=== PATIENT | female | born 1980 | race Caucasian/White ===

== ENCOUNTER 2017-08-21 11:21 | Emergency (ER) | payer OTHER ==
[~2017-08-21] VITALS: Ht 165.1 cm; Wt 68.6 kg
[2017-08-21 11:25] VITALS: TEMP 36.5; Ht 165.1 cm; Wt 68.6 kg
[2017-08-21] MEDS ORDERED: METHYLPREDNISOLONE 125 MG VIAL IV STA (11:42)
[2017-08-21] MEDS ORDERED: DiphenhydrAMINE HCL 50 MG/ML VIAL IV STA (11:42)
[2017-08-21] MEDS ORDERED: FAMOTIDINE 20MG/102 ML D5W IV STA (11:42)
[2017-08-21] MEDS ORDERED: SODIUM CHLORIDE 0.9% 1000ML 1,000 ML IV STA (11:42)
[2017-08-21] MEDS ORDERED: RANI150T3 PO (12:14)
[2017-08-21] MEDS ORDERED: DIPH25CA65 PO (12:14)
[2017-08-21] MEDS ORDERED: PRED50TA PO (13:15)
[2017-08-21 13:23] VITALS: BP 99/51; PULSE 81; O2SAT 97
--- NOTE | 2017-08-21 14:50 | EMERGENCY ROOM VISIT NOTE ---
History Report prepared by Rayna: Deepa Leon Under the Supervision of: Dr. Kraig Quiroz D.O. First contact with patient: 11:29 Chief Complaint: ALLERGIC REACTION Stated Complaint: HIVES - TIGHTNESS IN THROAT History of Present Illness The patient is a 37 year old female who presents to the Emergency Room with complaints of persistent hives over her entire body that began Wednesday around 1530. She currently rates her discomfort as an 8/10 in severity. The patient states that Wednesday she had eaten some ice-cream, but states that she had the ice -cream in the past and never had a reaction to it in the past. She states that hives started in her abdomen and the inside of her legs. The patient states that she went to Urgent Care on Wednesday and states that she was given a dexamethasone shot and instructed to take Benadryl. She states that she last Wednesday she had a sore throat and had taken Benadryl for her symptoms, noting that the soreness has resolved. The patient states that since the hives began she has had throat tightness. She states that she has been using 25 mg of Benadryl for her symptoms. The patient states that her whole body is itchy. She denies any new soaps, detergents, pets, new perfumes, travel, or drinking or eating anything out of the ordinary. Source of History: patient Onset: Wednesday around 0 Position: other (entire body) Symptom Intensity: 8/10 Quality: other (hives, itchy) Timing: other (persistent) Note: Associated Symptoms: throat tightness Review of Systems See HPI for pertinent positives & negatives. A total of 10 systems reviewed and were otherwise negative. Past Medical & Surgical Medical Problems: (1) section (2) History of - tubal ligation (3) Migraine (4) [place] Teeth Removal Family History Diabetes mellitus FH: cancer Hypertension Kidney disease Kidney stones Social History Smoking Status: Current Every Day Smoker Alcohol Use: none Drug Use: none Marital Status: Housing Status: lives with family Occupation Status: employed Current/Historical Medications Scheduled Prednisone (Prednisone), 50 MG PO DAILY Ranitidine Hcl (Zantac), 150 MG PO DAILY Scheduled PRN Diphenhydramine Hcl (Benadryl Allergy), 1 CAP PO UD PRN for AL. Allergies Coded Allergies: No Known Allergies (Unverified , 08/21/17) Physical Exam Vital Signs Date Time Temp Pulse Resp B/P (MAP) Pulse Ox O2 Delivery O2 Flow Rate FiO2 08/21/17 13:23 81 18 99/51 97 08/21/17 12:35 74 18 100 Room Air 08/21/17 11:25 36.5 100 20 99/66 97 Room Air Physical Exam GENERAL: alert, ambulating throughout room, well appearing, well nourished, no distress, non-toxic EYE EXAM: normal conjunctiva. OROPHARYNX: no exudate, no erythema, lips, buccal mucosa, and tongue normal and mucous membranes are moist NECK: supple, no nuchal rigidity, no adenopathy, non-tender LUNGS: Clear to auscultation. Normal chest wall mechanics HEART: no murmurs, S1 normal and S2 normal ABDOMEN: abdomen soft, non-tender, normo-active bowel sounds, no masses, no rebound or guarding. BACK: Back is symmetrical on inspection and there is no deformity, no midline tenderness, no CVA tenderness. SKIN: Diffuse, erythematous, raised, macular lesions which [place] on palpation, no petechia. no oral involvement. Negative Nikolsky sign. UPPER EXTREMITIES: upper extremities are grossly normal. LOWER EXTREMITIES: No pitting edema. NEURO EXAM: Normal sensorium, cranial nerves II-XII grossly intact, normal speech, no gross weakness of arms, no gross weakness of legs. Medical Decision & Procedures Medications Administered Medications (Trade) Dose Ordered Sig/Maria Teresa Route Start Time Stop Time Status Last Admin Dose Admin Sodium Chloride 1,000 ml @ 999 mls/hr Q1H1M STAT IV 08/21/17 11:42 08/21/17 12:42 DC 08/21/17 12:05 999 MLS/HR Diphenhydramine HCl (Benadryl Inj) 50 mg NOW STAT IV 08/21/17 11:42 08/21/17 11:48 DC 08/21/17 12:06 50 MG Methylprednisolone Sodium Succinate (Solu-Medrol IV) 125 mg NOW STAT IV 08/21/17 11:42 08/21/17 11:48 DC 08/21/17 12:06 125 MG Famotidine (Pepcid 20mg/100 ml) 40 mg ONE STAT IV 08/21/17 11:42 08/21/17 11:48 DC 08/21/17 12:06 40 MG ED Course ED COURSE: Vital signs were reviewed and showed hypotensive The patients medical record was reviewed The above diagnostic studies were performed and reviewed. ED treatments and interventions as stated above. 1130: The patient was evaluated in room B3B. A complete history and physical examination was performed. 1142: Ordered Famotidine 40 mg IV, Solu-Medrol IV 125 mg IV, Benadryl Inj 50 mg IV, Sodium Chloride 1000 ml @ 999 mls/hr IV. 1307: Upon reevaluation, the patient is feeling better, but still slightly itchy.I discussed my findings with the patient and she understands and agrees with the treatment plan. Based on the patients age, coexisting illnesses, exam and lab findings the decision to treat as an outpatient was made. The patient remained stable while under my care. The patient appeared well at the time of discharge. Medical Decision Differential diagnosis: Etiologies such as allergic reaction, anaphylaxis, urticaria, Mcdonald-Nick syndrome, toxic epidermal necrolysis, erythema multiforme, cellulitis, as well as others were entertained. Patient is a 37-year-old female that presents to ER with hives. She notes that it started Wednesday. Cervical degenerative and Lasix grossly worsened she also complains of a mild sore throat which started last week which only lasts for less than 24 hours. It was associated with a cough which also resolved quickly. No oral lesions. She has been taking Benadryl without relief. IV was established she was given IV Benadryl 50 mg she is only taking 25, steroids , famotidine and she had improvement in her rash and itching GERD that she did not completely resolve. She was updated in regards to her findings and was discharged to follow-up with PCP. As stated above there is no new detergents, soaps, sprays, animals, travel, clothing or food/drink. No new medications other with the exception of Benadryl which she took several days ago. Discussed with Pt concerning signs and symptoms to watch out for. Pt was instructed to follow up with their PCP and discussed with the patient their option to return to the ED at anytime for persistent or worsening symptoms. The appropriate anticipatory guidance and out-patient management, including indications for return to the emergency department, were explained at length to the patient and understood. Medication Reconcilliation Current Medication List: was personally reviewed by me Blood Pressure Screening Patient's blood pressure: Low blood pressure Blood pressure disposition: Did not require urgent referral Impression Primary Impression: Allergic reaction Scribe Attestation The scribe's documentation has been prepared under my direction and personally reviewed by me in its entirety. I confirm that the note above accurately reflects all work, treatment, procedures, and medical decision making performed by me. Departure Information Dispostion Home / Self-Care Prescriptions Prednisone (PREDNISONE) 50 Mg Tab 50 MG PO DAILY for 5 Days, #5 TAB Prov: Kraig Quiroz, DO 08/21/17 Referrals Calvin Turner M.D. Forms HOME CARE DOCUMENTATION FORM, IMPORTANT VISIT INFORMATION Patient Instructions ED Allergic Reaction General Other, My [facility] Problem Qualifiers Primary Impression: Allergic reaction Encounter type: initial encounter Qualified Codes: T78.40XA - Allergy, unspecified, initial encounter
== END 2017-08-21 13:24 | disposition home or self-care (01) ==
LOC: C.EDB 11:21
DX: T78.40XA Allergy, unspecified, initial encounter (principal); X58.XXXA Exposure to other specified factors, initial encounter; F17.200 Nicotine dependence, unspecified, uncomplicated; Z98.51 Tubal ligation status; Z98.891 History of uterine scar from previous surgery; Z98.818 Other dental procedure status; Z83.3 Family history of diabetes mellitus; Z82.49 Family history of ischemic heart disease and other diseases of the circulatory system; Z84.1 Family history of disorders of kidney and ureter

== ENCOUNTER 2017-08-23 09:40 | Emergency (ER) | payer OTHER ==
[~2017-08-23] VITALS: Ht 165.1 cm; Wt 67.1 kg
[~2017-08-23 09:40] MED LIST: DIPH25CA65 PO; PRED50TA PO; RANI150T3 PO
[2017-08-23 09:48] VITALS: TEMP 36.8; Ht 165.1 cm; Wt 67.1 kg
[2017-08-23] MEDS ORDERED: SODIUM CHLORIDE 0.9% 1000ML 1,000 ML IV STA (10:24)
[2017-08-23] MEDS ORDERED: ONDANSETRON INJ 2 MG/ML 2 ML VIAL IV STA (10:24)
[2017-08-23] MEDS ORDERED: FAMOTIDINE 20MG/102 ML D5W IV STA (10:24)
[2017-08-23] MEDS ORDERED: DiphenhydrAMINE HCL 50 MG/ML VIAL IV STA (10:30)
[2017-08-23 11:25] LABS: PREG INTERNAL NEGATIVE QC NEG CLEAR BACKGROUND; PREG INTERNAL POSITIVE QC POS CONTROL LINE
[2017-08-23 11:26] LABS: BUN/CREATININE RATIO 11.8 (10-20); CALCIUM 8.9 mg/dl (8.5-10.1); CREATININE 0.76 mg/dl (0.60-1.20); MAGNESIUM 2.3 mg/dl (1.8-2.4); PHOSPHORUS 2.9 mg/dl (2.5-4.9); POTASSIUM 3.3 mmol/L (3.5-5.1)
[2017-08-23 11:59] VITALS: PULSE 67; O2SAT 98
[2017-08-23] MEDS ORDERED: POTASSIUM CHLORIDE 10 MEQ TABCR PO STA (12:12)
[2017-08-23] MEDS ORDERED: ONDA4TAB10 SL ×2 (12:43→13:24)
--- NOTE | 2017-08-23 12:45 | EMERGENCY ROOM VISIT NOTE ---
History Report prepared by Rayna: Ny Montelongo Under the Supervision of: Dr. Hung Iqbal M.D. First contact with patient: 10:16 Chief Complaint: ILLNESS Stated Complaint: DIZZY,HIVES,NUMBNESS,NAUSEOUS History of Present Illness The patient is a 37 year old female who presents to the Emergency Room with complaints of persistent nausea starting yesterday. The patient was in the ED 2 days ago for an allergic reaction. She had developed hives. She is still not sure what caused the reaction. She was discharged on prednisone. She had her first dose of prednisone yesterday and had 1 today. The hives have improved and she no longer has itching. Yesterday, she started feeling nauseous. This morning when she woke up, she felt very nauseous and was dry heaving. Her heart feels fluttery and she has numbness in her face and tingling in her feet. She feels restless and cold. She denies any abdominal pain, wheezing, fever, chest pain, SOB, cough, congestion, or diarrhea. She has not had a bowel movement for 1 week. She notes that she has not eaten well for the past week. She denies any chance of . She is not on any medications. She denies any new detergents or soap. She has 2 dogs which spend most of their time in the house. Source of History: patient Onset: yesterday Position: other (global) Quality: other (nausea) Timing: other (persistent) Associated Symptoms: + chills, + numbness, + rash, No fevers, No cough, No chest pain, No SOB, No vomiting, No abdominal pain, No diarrhea Note: Pt reports dry heaving, fluttering heart, restless. Pt denies wheezing, congestion. Review of Systems See HPI for pertinent positives and negatives. A total of ten systems were reviewed and were otherwise negative. Past Medical & Surgical Medical Problems: (1) section (2) History of - tubal ligation (3) Migraine (4) [place] Teeth Removal Family History Diabetes mellitus FH: cancer Hypertension Kidney disease Kidney stones Social History Smoking Status: Current Every Day Smoker Alcohol Use: none Drug Use: none Marital Status: Housing Status: lives with family Occupation Status: employed Current/Historical Medications Scheduled Famotidine (Pepcid), 20 MG PO BID Ondasetron Odt (Zofran Odt), 4 MG SL Q6H Prednisone (Prednisone), 50 MG PO DAILY Scheduled PRN Diphenhydramine Hcl (Benadryl Allergy), 1 CAP PO UD PRN for AL. Allergies Coded Allergies: No Known Allergies (Unverified , 08/23/17) Physical Exam Vital Signs Date Time Temp Pulse Resp B/P (MAP) Pulse Ox O2 Delivery O2 Flow Rate FiO2 08/23/17 13:29 110/62 08/23/17 11:59 67 17 101/58 98 Room Air 08/23/17 09:48 36.8 72 20 115/70 96 Room Air Physical Exam GENERAL: Awake, alert, well-appearing, in no distress HENT: Normocephalic, atraumatic. Oropharynx unremarkable. Dry mucous membranes. EYES: Normal conjunctiva. Sclera non-icteric. NECK: Supple. No nuchal rigidity. FROM. No JVD. RESPIRATORY: Clear to auscultation. CARDIAC: Regular rate, normal rhythm. Extremities warm and well perfused. Pulses equal. ABDOMEN: Soft, non-distended. No tenderness to palpation. No rebound or guarding. No masses. RECTAL: Deferred. MUSCULOSKELETAL: Chest examination reveals no tenderness. The back is symmetrical on inspection without obvious abnormality. There is no CVA tenderness to palpation. No joint edema. LOWER EXTREMITIES: Calves are equal size bilaterally and non-tender. No edema. No discoloration. NEURO: Normal sensorium. No sensory or motor deficits noted. SKIN: No jaundice noted. Raised, scattered erythematous blanchable patches consistent with hives. Medical Decision & Procedures Laboratory Results 08/23/17 10:30 Test 08/23/17 10:30 Anion Gap 10.0 mmol/L (3-11) Est Creatinine Clear Calc Drug Dose 91.2 ml/min Estimated GFR () 116.1 Estimated GFR (Non- 100.2 BUN/Creatinine Ratio 11.8 (10-20) Calcium Level 8.9 mg/dl (8.5-10.1) Phosphorus Level 2.9 mg/dl (2.5-4.9) Magnesium Level 2.3 mg/dl (1.8-2.4) Human Chorionic Gonadotropin, Qual NEG (NEG) Laboratory results reviewed by me Medications Administered Medications (Trade) Dose Ordered Sig/Maria Teresa Route Start Time Stop Time Status Last Admin Dose Admin Sodium Chloride 1,000 ml @ 999 mls/hr Q1H1M STAT IV 08/23/17 10:24 08/23/17 11:24 DC 08/23/17 10:24 999 MLS/HR Ondansetron HCl (Zofran Inj) 4 mg NOW STAT IV 08/23/17 10:24 08/23/17 10:29 DC 08/23/17 10:51 4 MG Famotidine (Pepcid 20mg/100 ml) 20 mg ONE STAT IV 08/23/17 10:24 08/23/17 10:29 DC 08/23/17 10:51 20 MG Diphenhydramine HCl (Benadryl Inj) 25 mg NOW STAT IV 08/23/17 10:30 08/23/17 10:32 DC 08/23/17 10:51 25 MG Potassium Chloride (Klor-Con M10) 40 meq NOW STAT PO 08/23/17 12:12 08/23/17 12:13 DC 08/23/17 12:26 40 MEQ ECG Indication: other (dizziness) Rate (beats per minute): 75 Rhythm: normal sinus Findings: no acute ischemic change, other (normal axis) Comparison ECG Date: 01-Jun-2013 Change: no significant change ED Course 1021: The patient was evaluated in room A12B. A complete history and physical exam was performed. 1024: Famotidine 20 mg IV, Zofran Inj 4 mg IV, NSS 1000 ml @ 999 mls/hr IV. 1030: Benadryl Inj 25 mg IV. 1212: Potassium Chloride 40 meq PO. 1250: I reevaluated the patient. She is feeling better. I discussed results and discharge instructions: She verbalized understanding and agreement. The patient is ready for discharge. Medical Decision I reviewed the patient's past medical history, medications, and the nursing notes as described above. Differential diagnosis: dehydration, electrolyte abnormality, gastritis, gastroenteritis, adverse medication effect. Patient is a 37-year-old woman who presents emergency Department with nausea and vomiting in the setting of being treated with prednisone and Benadryl for an allergic reaction with diffuse hives on Wednesday per history of present illness. Arrival the patient appears mildly uncomfortable but in no acute distress. Afebrile stable vital signs. ABD soft nontender nondistended. Patient was given IV fluids and Zofran and Pepcid with good effect and resolution of her symptoms. Labs unremarkable. Symptoms possibly due to adverse effect of prednisone. Considering improved sx will have patient finish her 5 day burst but will add pepcid to her meds. Findings and plan for follow- up d/w patient. Patient agreeable and d/c'd per discharge instructions. Medication Reconcilliation Current Medication List: was personally reviewed by me Blood Pressure Screening Patient's blood pressure: Normal blood pressure Blood pressure disposition: Did not require urgent referral Impression Primary Impression: Nausea & vomiting Additional Impression: Hypokalemia Scribe Attestation The scribe's documentation has been prepared under my direction and personally reviewed by me in its entirety. I confirm that the note above accurately reflects all work, treatment, procedures, and medical decision making performed by me. Departure Information Dispostion Home / Self-Care Prescriptions Ondasetron Odt (ZOFRAN ODT) 4 Mg Tab 4 MG SL Q6H for Nausea, #6 TAB Prov: Hung Iqbal M.D. 08/23/17 Famotidine (PEPCID) 20 Mg Tab 20 MG PO BID for 7 Days, #14 TAB Prov: Hung Iqbal M.D. 08/23/17 Referrals Calvin Turner M.D. (PCP) Patient Instructions ED Nausea Vomiting, My [facility] Additional Instructions Please follow up with your primary care physician in the next 1-3 days for re- evaluation. You likely were having an effect your prednisone. Otherwise, your exam and lab results did not show signs of an emergent condition at this time. Ensure hydration. Pepcid as directed. Zofran as needed for nausea. Return to the emergency department for worsening symptoms as described in the accompanying instructions. Problem Qualifiers
[2017-08-23] MEDS ORDERED: FAMO20TA9 PO (13:02)
[2017-08-23 13:29] VITALS: BP 110/62
== END 2017-08-23 13:31 | disposition home or self-care (01) ==
LOC: C.EDB 09:42 → C.EDA 13:31
DX: R11.2 Nausea with vomiting, unspecified (principal); E87.6 Hypokalemia; Z98.51 Tubal ligation status; F17.210 Nicotine dependence, cigarettes, uncomplicated; Z83.3 Family history of diabetes mellitus; Z80.9 Family history of malignant neoplasm, unspecified; Z82.49 Family history of ischemic heart disease and other diseases of the circulatory system; Z84.1 Family history of disorders of kidney and ureter; Z79.899 Other long term (current) drug therapy